=== PATIENT | female | born 1990 | race Caucasian/White ===

== ENCOUNTER 2016-10-11 09:43 | Emergency (ER) | payer MEDICAID ==
[~2016-10-11] VITALS: Ht 154.9 cm; Wt 60.7 kg
[~2016-10-11 09:43] MED LIST: CHLO10CA6 PO; FLUO20CA19 PO; GABA300C10 PO; TRAZ50TA18 PO
[2016-10-11 09:44] VITALS: BP 136/85
[2016-10-11] MEDS ORDERED: KETOROLAC 30 MG/1 ML IM ONE (10:30)
== END 2016-10-11 10:15 | disposition home or self-care (01) ==
LOC: ED 10:00
DX: M79.673 Pain in unspecified foot (principal); Z76.0 Encounter for issue of repeat prescription
CPT/HCPCS: 99281

== ENCOUNTER 2017-01-11 10:03 | Emergency (ER) | payer MEDICAID ==
[~2017-01-11] VITALS: Ht 154.9 cm; Wt 55.0 kg
[2017-01-11] MEDS ORDERED: CITA10TA8 PO (10:23)
[2017-01-11 10:24] VITALS: BP 123/84
[2017-01-11] MEDS ORDERED: TRAZ100T15 PO (10:24)
[2017-01-11] MEDS ORDERED: LORazepam 2 MG/ML, 1ML ONE (10:29)
[2017-01-11] MEDS ORDERED: LORazepam 2 MG/ML, 1ML IVPush ONE (10:30)
== END 2017-01-11 11:28 | disposition left against medical advice (07) ==
LOC: ED 11:26
DX: F10.10 Alcohol abuse, uncomplicated (principal)
CPT/HCPCS: 96374; 99284; J2060

== ENCOUNTER 2017-02-23 11:12 | Emergency (ER) | payer MEDICAID ==
[~2017-02-23] VITALS: Ht 154.9 cm; Wt 59.0 kg
[~2017-02-23 11:12] MED LIST changes: +CITA10TA8 PO; +TRAZ100T15 PO
[2017-02-23 11:15] VITALS: BP 113/74
== END 2017-02-23 12:19 | disposition home or self-care (01) ==
LOC: ED 12:13
DX: K08.89 Other specified disorders of teeth and supporting structures (principal); F17.200 Nicotine dependence, unspecified, uncomplicated
CPT/HCPCS: 99283

== ENCOUNTER 2017-03-24 20:38 | Emergency (ER) | payer MEDICAID ==
[~2017-03-24] VITALS: Ht 154.9 cm; Wt 60.0 kg
[2017-03-24] MEDS ORDERED: LORazepam 1MG TABLET ONE (20:57)
[2017-03-24] MEDS ORDERED: LORazepam 1MG TABLET PO ONE (21:00)
[2017-03-24 21:41] LABS: HEMOGLOBIN 14.8 g/dL (11.7-16.4); WHITE BLOOD COUNT 11.5 x10^3/uL (3.4-10)
[2017-03-24 21:51] LABS: ASPARTATE AMINO TRANSFERASE 32 U/L (15-37); BLOOD UREA NITROGEN 7 mg/dL (7-18)
[2017-03-24 21:59] LABS: ACETAMINOPHEN < 2 mcg/mL (10-30)
[2017-03-24 22:11] VITALS: BP 124/87
[2017-03-25] MEDS ORDERED: FLUO20CA19 PO (20:27)
== END 2017-03-24 22:12 | disposition left against medical advice (07) ==
LOC: ED 21:42
DX: F41.1 Generalized anxiety disorder (principal); F10.120 Alcohol abuse with intoxication, uncomplicated; F17.200 Nicotine dependence, unspecified, uncomplicated; Z88.2 Allergy status to sulfonamides
CPT/HCPCS: 36415; 80053; 80307; 80329; 84703; 85025; 99284; G0480

== ENCOUNTER 2017-03-25 13:27 | Inpatient (IN) | payer MEDICAID ==
[~2017-03-25] VITALS: Ht 154.9 cm; Wt 62.4 kg
[2017-03-25] MEDS ORDERED: LORazepam 2 MG/ML, 1ML IVPush ONE (14:00)
[2017-03-25] MEDS ORDERED: PLEASE ENTER HEIGHT AND WEIGHT MC SCH (14:00)
[2017-03-25] MEDS ORDERED: SODIUM CHLORIDE 0.9% 1,000ML IVBOLUS ONE ×2 (14:00→15:30)
[2017-03-25 14:01] LABS: HEMATOCRIT 43.2 % (34.6-47.8); HEMOGLOBIN 14.7 g/dL (11.7-16.4); WHITE BLOOD COUNT 11.3 x10^3/uL (3.4-10)
[2017-03-25 14:10] LABS: ASPARTATE AMINO TRANSFERASE 24 U/L (15-37); BLOOD UREA NITROGEN 12 mg/dL (7-18)
[2017-03-25] MEDS ORDERED: LORazepam 2 MG/ML, 1ML ONE (14:16)
[2017-03-25] MEDS ORDERED: CHARCOAL/SORBITOL 50 GM/240 ML ONE (14:16)
[2017-03-25 14:21] LABS: ACETAMINOPHEN < 2 mcg/mL (10-30)
[2017-03-25] MEDS ORDERED: CHARCOAL/AQUEOUS 25 GM/120 ML PO ONE (14:30)
[2017-03-25] MEDS ORDERED: LORazepam 1MG TABLET ONE (19:13)
[2017-03-25] MEDS ORDERED: POTASSIUM CHLORIDE 20 MEQ TAB.ER.PRT ONE (19:13)
[2017-03-25] MEDS ORDERED: POTASSIUM CHLORIDE 10% 40 MEQ/30 ML UDC PO ONE (19:30)
[2017-03-25] MEDS ORDERED: LORazepam 1MG TABLET PO ONE (19:30)
[2017-03-25 19:49] LABS: DAU SCREEN DISCLAIMER
[2017-03-25] MEDS ORDERED: FLUO20CA19 PO (20:27)
[2017-03-26] MEDS ORDERED: NS + 40MEQ KCL 1,000 ML IV SCH (01:30)
[2017-03-26] MEDS ORDERED: ACETAMINOPHEN 325 MG TABLET PO PRN (01:30)
[2017-03-26] MEDS ORDERED: ONDANSETRON 2MG/ML, 2ML IVPush PRN (01:30)
[2017-03-26] MEDS ORDERED: LABETALOL 5MG/ML, 20ML IVPush PRN (01:30)
[2017-03-26] MEDS ORDERED: NICOTINE 14MG/24 HR PATCH.TD24 ONE (02:08)
[2017-03-26] MEDS ORDERED: NS + 40MEQ KCL 1,000 ML IV ONE (02:08)
[2017-03-26] MEDS: NICOTINE 14MG/24 HR PATCH.TD24 TD SCH ×2 (02:15→23:03)
[2017-03-26 03:32] VITALS: BP 112/74
[2017-03-26 06:33] LABS: HEMATOCRIT 36.5 % (34.6-47.8); HEMOGLOBIN 12.3 g/dL (11.7-16.4); WHITE BLOOD COUNT 8.3 x10^3/uL (3.4-10)
[2017-03-26 06:46] LABS: ASPARTATE AMINO TRANSFERASE 13 U/L (15-37); BLOOD UREA NITROGEN 13 mg/dL (7-18)
[2017-03-26] MEDS ORDERED: LORazepam 1MG TABLET ONE (08:40)
[2017-03-26] MEDS: FAMOTIDINE 20 MG/2 ML IVPush SCH ×2 (08:42→19:57)
[2017-03-26 08:52] VITALS: BP 115/77
[2017-03-26] MEDS ORDERED: LORazepam 0.5MG TABLET PO ONE (09:00)
[2017-03-26] MEDS ORDERED: POTASSIUM PHOSPHATE 22 MEQ in SODIUM CHLORIDE 0.9% 500 ML IV ONE (09:00)
[2017-03-26] MEDS ORDERED: MAGNESIUM SULFATE PMX 2GM/50ML 50 ML IV ONE (09:00)
[2017-03-26] MEDS ORDERED: LORazepam 0.5MG TABLET PO PRN ×2 (09:00→14:00)
[2017-03-26 13:47] VITALS: BP 136/87
[2017-03-26] MEDS ORDERED: LORazepam 1MG TABLET PO PRN ×6 (14:00)
[2017-03-26] MEDS ORDERED: LORazepam 2 MG/ML, 1ML IV PRN ×8 (14:00)
[2017-03-26] MEDS: LORazepam 2 MG/ML, 1ML IV PRN ×4 (14:18→19:57)
[2017-03-26] MEDS: HEPARIN 5,000 UNITS/ML, 1ML SQ SCH ×2 (15:02→23:03)
[2017-03-26 18:36] VITALS: BP 108/68
[2017-03-26] MEDS: FOLIC ACID 1 MG TABLET PO SCH (19:57)
[2017-03-26] MEDS: THIAMINE 100MG TABLET PO SCH (19:57)
[2017-03-26] MEDS ORDERED: DIPHENHYDRAMINE 50 MG CAPSULE PO ONE (21:30)
[2017-03-26] MEDS ORDERED: DIPHENHYDRAMINE 25 MG CAPSULE ONE (22:26)
[2017-03-27 00:48] VITALS: BP 115/79
[2017-03-27] MEDS: LORazepam 0.5MG TABLET PO PRN ×3 (01:35→11:33)
[2017-03-27 05:26] LABS: HEMATOCRIT 32.9 % (34.6-47.8); HEMOGLOBIN 11.1 g/dL (11.7-16.4); WHITE BLOOD COUNT 7.1 x10^3/uL (3.4-10)
[2017-03-27 05:35] LABS: BLOOD UREA NITROGEN 7 mg/dL (7-18)
[2017-03-27 08:00] VITALS: BP 122/84
[2017-03-27] MEDS: THIAMINE 100MG TABLET PO SCH (09:23)
[2017-03-27] MEDS: FOLIC ACID 1 MG TABLET PO SCH (09:23)
[2017-03-27] MEDS: HEPARIN 5,000 UNITS/ML, 1ML SQ SCH ×3 (09:24→23:00)
[2017-03-27] MEDS: FAMOTIDINE 20 MG/2 ML IVPush SCH (09:24)
[2017-03-27] MEDS: GABAPENTIN 100 MG CAPSULE PO SCH ×4 (13:00→21:33)
[2017-03-27 14:30] VITALS: BP 136/85
[2017-03-27] MEDS: ONDANSETRON ODT 4 MG PO PRN ×2 (15:06→17:37)
[2017-03-27] MEDS: LORazepam 1MG TABLET PO PRN ×2 (17:36→21:33)
[2017-03-27 19:42] VITALS: BP 119/79
[2017-03-28] MEDS: HEPARIN 5,000 UNITS/ML, 1ML SQ SCH ×3 (07:00→20:36)
[2017-03-28 08:00] VITALS: BP 110/74
[2017-03-28] MEDS: GABAPENTIN 100 MG CAPSULE PO SCH ×3 (09:04→20:34)
[2017-03-28] MEDS: FOLIC ACID 1 MG TABLET PO SCH (09:04)
[2017-03-28] MEDS: THIAMINE 100MG TABLET PO SCH (09:04)
[2017-03-28] MEDS: LORazepam 1MG TABLET PO PRN ×4 (09:14→19:35)
[2017-03-28] MEDS: NICOTINE GUM 2 MG BC PRN ×2 (09:42→16:12)
[2017-03-28 19:45] VITALS: BP 105/68
[2017-03-28] MEDS ORDERED: LABETALOL 5MG/ML, 20ML IVPush PRN (20:00)
[2017-03-28] MEDS ORDERED: ACETAMINOPHEN 325 MG TABLET PO PRN (20:00)
[2017-03-28] MEDS ORDERED: ONDANSETRON ODT 4 MG PO PRN (20:00)
[2017-03-28] MEDS ORDERED: ONDANSETRON 2MG/ML, 2ML IVPush PRN (20:00)
[2017-03-28] MEDS ORDERED: DIPHENHYDRAMINE 50 MG CAPSULE PO ONE (23:00)
[2017-03-29] MEDS: HEPARIN 5,000 UNITS/ML, 1ML SQ SCH ×3 (07:00→22:37)
[2017-03-29] MEDS: GABAPENTIN 100 MG CAPSULE PO SCH ×3 (08:04→19:53)
[2017-03-29] MEDS: LORazepam 1MG TABLET PO PRN ×3 (08:05→19:54)
[2017-03-29] MEDS: NICOTINE GUM 2 MG BC PRN ×3 (08:05→19:55)
[2017-03-29] MEDS: FOLIC ACID 1 MG TABLET PO SCH (08:05)
[2017-03-29] MEDS: THIAMINE 100MG TABLET PO SCH (08:16)
[2017-03-29 08:50] VITALS: BP 111/71
[2017-03-29 19:46] VITALS: BP 120/77
[2017-03-29] MEDS ORDERED: DIPHENHYDRAMINE 25 MG CAPSULE ONE (21:15)
[2017-03-29] MEDS ORDERED: DIPHENHYDRAMINE 25 MG CAPSULE PO PRN (21:30)
[2017-03-30] MEDS: HEPARIN 5,000 UNITS/ML, 1ML SQ SCH ×2 (07:00→15:00)
[2017-03-30] MEDS: GABAPENTIN 100 MG CAPSULE PO SCH ×2 (09:15→15:35)
[2017-03-30] MEDS: THIAMINE 100MG TABLET PO SCH (09:15)
[2017-03-30] MEDS: FOLIC ACID 1 MG TABLET PO SCH (09:15)
[2017-03-30] MEDS: NICOTINE GUM 2 MG BC PRN (09:19)
[2017-03-30 10:05] VITALS: BP 117/79
[2017-03-30 10:07] VITALS: BP 117/79
[2017-03-30] MEDS: NICOTINE GUM 4 MG BC PRN ×2 (13:10→15:35)
[2017-03-30] MEDS ORDERED: FLUO40CA9 PO (17:03)
[2017-03-30] MEDS ORDERED: FLUO20CA19 PO (17:03)
[2017-03-30] MEDS ORDERED: GABA300C10 PO (17:03)
== END 2017-03-30 17:37 | disposition home or self-care (01) | DRG 918 ==
LOC: ED 14:41 → EDIP 03-26 01:15 → 4WST 03-26 03:21 → 3E 03-27 17:04
PROVIDERS: ADMIT Internal Medicine; ATTEND Internal Medicine
DX: T43.222A Poisoning by selective serotonin reuptake inhibitors, intentional self-harm, initial encounter (principal); F33.2 Major depressive disorder, recurrent severe without psychotic features; E87.6 Hypokalemia; D64.9 Anemia, unspecified; F10.129 Alcohol abuse with intoxication, unspecified; F12.90 Cannabis use, unspecified, uncomplicated; F17.200 Nicotine dependence, unspecified, uncomplicated; F40.00 Agoraphobia, unspecified; F41.0 Panic disorder [episodic paroxysmal anxiety]; F43.10 Post-traumatic stress disorder, unspecified; F43.21 Adjustment disorder with depressed mood; Z79.899 Other long term (current) drug therapy; Z80.1 Family history of malignant neoplasm of trachea, bronchus and lung; Z88.2 Allergy status to sulfonamides; Y92.89 Other specified places as the place of occurrence of the external cause
CPT/HCPCS: 36415; 80048; 80053; 80307; 80329; 83735; 84100; 84703; 85025; 93005; 96361; 96374; J1644; J2405; Q0162; G0479; G0480; J2060; J3475; J3480; J7030; J7040; Q0163; S0028

== ENCOUNTER 2017-04-23 05:17 | Emergency (ER) | payer MEDICAID ==
[~2017-04-23] VITALS: Ht 167.6 cm; Wt 61.0 kg
[~2017-04-23 05:17] MED LIST changes: +FLUO40CA9 PO
[2017-04-23] MEDS ORDERED: LORazepam 2 MG/ML, 1ML IVPush ONE (05:30)
[2017-04-23] MEDS ORDERED: SODIUM CHLORIDE 0.9% 1,000ML IVBOLUS ONE (05:30)
[2017-04-23] MEDS ORDERED: THIAMINE 100MG TABLET PO ONE (05:30)
[2017-04-23] MEDS ORDERED: THIAMINE 100MG TABLET ONE (05:35)
[2017-04-23] MEDS ORDERED: LORazepam 2 MG/ML, 1ML ONE (05:35)
[2017-04-23 06:35] VITALS: BP 129/79
== END 2017-04-23 06:42 | disposition home or self-care (01) ==
LOC: ED 05:30
DX: F10.280 Alcohol dependence with alcohol-induced anxiety disorder (principal); F17.210 Nicotine dependence, cigarettes, uncomplicated; F32.9 Major depressive disorder, single episode, unspecified; F43.10 Post-traumatic stress disorder, unspecified
CPT/HCPCS: 96361; 96374; 99284; J2060; J7030

== ENCOUNTER 2017-05-03 12:22 | Emergency (ER) | payer MEDICAID ==
[~2017-05-03] VITALS: Ht 154.9 cm; Wt 57.2 kg
[2017-05-03 12:25] VITALS: BP 141/95
[2017-05-03] MEDS ORDERED: LIDOCAINE 1%, 20ML ONE (12:45)
[2017-05-03] MEDS ORDERED: BENZOCAINE 20% SPRAY 0.5ML ONE (12:47)
[2017-05-03] MEDS ORDERED: BENZOCAINE 20% SPRAY 0.5ML TP ONE (13:00)
[2017-05-03] MEDS ORDERED: LIDOCAINE 1%, 20ML SQ ONE (13:00)
== END 2017-05-03 13:14 | disposition home or self-care (01) ==
LOC: ED 12:45
DX: K01.1 Impacted teeth (principal); K08.89 Other specified disorders of teeth and supporting structures
CPT/HCPCS: 64400; 99284

== ENCOUNTER 2017-06-02 19:44 | Emergency (ER) | payer MEDICAID ==
[~2017-06-02] VITALS: Ht 154.9 cm; Wt 65.0 kg
[2017-06-02 20:03] VITALS: BP 136/93
[2017-06-02] MEDS ORDERED: LORazepam 1MG TABLET ONE (20:45)
[2017-06-02] MEDS ORDERED: LORazepam 1MG TABLET PO ONE (21:00)
== END 2017-06-02 21:26 | disposition left against medical advice (07) ==
LOC: ED 19:52
DX: F10.239 Alcohol dependence with withdrawal, unspecified (principal)
CPT/HCPCS: 99283

== ENCOUNTER 2018-04-23 11:48 | Emergency (ER) | payer MEDICAID ==
[~2018-04-23] VITALS: Ht 154.9 cm; Wt 65.1 kg
[~2018-04-23 11:48] MED LIST changes: +TRAZ-136 PO; +TRAZ-137 PO; -TRAZ100T15 PO; -TRAZ50TA18 PO
[2018-04-23] MEDS ORDERED: THIAMINE 100 MG/ML, 2ML ONE (12:52)
[2018-04-23] MEDS ORDERED: LORazepam 2 MG/ML, 1ML ONE (12:52)
[2018-04-23 12:55] LABS: BASOPHILS # (AUTO) 0.02 x10^3/uL (0-0.1); BASOPHILS % (AUTO) 0 % (0-1); EOSINOPHILS # (AUTO) 0.06 x10^3/uL (0-0.4); EOSINOPHILS % (AUTO) 1 % (1-7); LYMPHOCYTES # (AUTO) 1.52 x10^3/uL (1-3.4); LYMPHOCYTES % (AUTO) 24 % (22-44); MD NO; MEAN CORPUSCULAR HEMOGLOBIN 31.9 pg (27.0-34.8); MEAN CORPUSCULAR VOLUME 93.9 fL (80-100); MEAN PLATELET VOLUME 7.4 fL (7.4-10.4); MONOCYTES # (AUTO) 0.42 x10^3/uL (0.2-0.8); MONOCYTES % (AUTO) 7 % (2-9); NEUTROPHILS # (AUTO) 4.45 x10^3/uL (1.8-6.8); NEUTROPHILS % (AUTO) 69 % (42-75); PLATELET COUNT 225 x10^3/uL (130-400); RED BLOOD COUNT 3.98 x10^6/uL (3.82-5.3); RED CELL DISTRIBUTION WIDTH 14.5 % (9.6-15.2)
[2018-04-23] MEDS ORDERED: THIAMINE 100 MG in SODIUM CHLORIDE 0.9% 50 ML IVPB ONE (13:00)
[2018-04-23] MEDS ORDERED: LORazepam 2 MG/ML, 1ML IVPush PRN (13:00)
[2018-04-23 13:09] LABS: ALANINE AMINOTRANSFERASE 57 U/L (12-78); ALBUMIN 3.4 g/dL (3.4-5.0); ANION GAP 9 mmol/L (5-15); CHLORIDE 110 mmol/L (98-107); CREATININE 0.57 mg/dL (0.55-1.02)
[2018-04-23 13:11] LABS: ALKALINE PHOSPHATASE 81 U/L (45-117); BILIRUBIN,TOTAL 0.3 mg/dL (0.2-1.0); TOTAL PROTEIN 6.8 g/dL (6.4-8.2)
[2018-04-23 14:23] VITALS: BP 96/50
== END 2018-04-23 14:26 | disposition home or self-care (01) ==
LOC: ED 13:06
DX: F10.239 Alcohol dependence with withdrawal, unspecified (principal); F10.10 Alcohol abuse, uncomplicated; F17.200 Nicotine dependence, unspecified, uncomplicated; Z88.2 Allergy status to sulfonamides
CPT/HCPCS: 36415; 80053; 83690; 85025; 96365; 96375; 99284; J2060; J3411

== ENCOUNTER 2018-07-09 10:11 | Emergency (ER) | payer MEDICAID ==
[~2018-07-09] VITALS: Ht 162.6 cm; Wt 75.0 kg
[~2018-07-09 10:11] MED LIST changes: -TRAZ-136 PO; +TRAZ50TA66 PO
[2018-07-09] MEDS ORDERED: PROMETHAZINE 25 MG/ML, 1ML ONE (10:29)
[2018-07-09] MEDS ORDERED: PROMETHAZINE 25 MG/ML, 1ML IM ONE (10:30)
[2018-07-09 10:34] LABS: BASOPHILS # (AUTO) 0.02 x10^3/uL (0-0.1); BASOPHILS % (AUTO) 1 % (0-1); EOSINOPHILS # (AUTO) 0.03 x10^3/uL (0-0.4); EOSINOPHILS % (AUTO) 1 % (1-7); LYMPHOCYTES # (AUTO) 1.99 x10^3/uL (1-3.4); LYMPHOCYTES % (AUTO) 50 % (22-44); MD NO; MEAN CORPUSCULAR HEMOGLOBIN 31.4 pg (27.0-34.8); MEAN CORPUSCULAR HGB CONC 33.5 g/dL (32.4-35.8); MEAN CORPUSCULAR VOLUME 93.8 fL (80-100); MEAN PLATELET VOLUME 6.7 fL (7.4-10.4); MONOCYTES # (AUTO) 0.31 x10^3/uL (0.2-0.8); MONOCYTES % (AUTO) 8 % (2-9); NEUTROPHILS # (AUTO) 1.63 x10^3/uL (1.8-6.8); NEUTROPHILS % (AUTO) 41 % (42-75); PLATELET COUNT 216 x10^3/uL (130-400); RED BLOOD COUNT 3.88 x10^6/uL (3.82-5.3)
[2018-07-09 10:45] LABS: ALANINE AMINOTRANSFERASE 33 U/L (12-78); ALBUMIN 3.1 g/dL (3.4-5.0); ANION GAP 10 mmol/L (5-15); CALCIUM 8.2 mg/dL (8.5-10.1); CHLORIDE 112 mmol/L (98-107); CREATININE 0.67 mg/dL (0.55-1.02)
[2018-07-09 10:50] LABS: ALKALINE PHOSPHATASE 71 U/L (45-117); BILIRUBIN,TOTAL 0.3 mg/dL (0.2-1.0); TOTAL PROTEIN 6.1 g/dL (6.4-8.2)
--- NOTE | 2018-07-09 11:01 | NUR ---
Assumed care of pt. Report from Reta ALEXANDER. Pt drowsy but oriented. States continued nasuea. VSS.
[2018-07-09 12:23] VITALS: BP 101/48
== END 2018-07-09 12:28 | disposition home or self-care (01) ==
LOC: ED 10:40
DX: F10.20 Alcohol dependence, uncomplicated (principal); F32.9 Major depressive disorder, single episode, unspecified; F41.1 Generalized anxiety disorder; F43.10 Post-traumatic stress disorder, unspecified
CPT/HCPCS: 36415; 80053; 80307; 83690; 84703; 85025; 96372; 99283; J2550

== ENCOUNTER 2019-01-08 18:16 | Emergency (ER) | payer MEDICAID ==
[~2019-01-08] VITALS: Ht 154.9 cm; Wt 68.0 kg
[2019-01-08 18:18] VITALS: BP 114/75
[2019-01-08] MEDS ORDERED: ONDANSETRON ODT 4 MG ONE (18:26)
[2019-01-08] MEDS ORDERED: ONDANSETRON ODT 4 MG PO ONE (18:30)
== END 2019-01-08 18:37 | disposition home or self-care (01) ==
LOC: ED 18:31
DX: F13.20 Sedative, hypnotic or anxiolytic dependence, uncomplicated (principal); F17.200 Nicotine dependence, unspecified, uncomplicated
CPT/HCPCS: 99283; Q0162

== ENCOUNTER 2019-01-25 23:46 | Emergency (ER) | payer MEDICAID ==
[~2019-01-25] VITALS: Ht 154.9 cm; Wt 69.9 kg
[2019-01-25 23:54] VITALS: BP 122/82
[2019-01-26] MEDS ORDERED: LORazepam 1MG TABLET PO ONE
[2019-01-26 01:05] LABS: MEAN CORPUSCULAR HEMOGLOBIN 32.2 pg (27.0-34.8); MEAN CORPUSCULAR HGB CONC 33.2 g/dL (32.4-35.8); MEAN CORPUSCULAR VOLUME 97.1 fL (80-100); MEAN PLATELET VOLUME 6.9 fL (7.4-10.4); PLATELET COUNT 311 x10^3/uL (130-400); RED CELL DISTRIBUTION WIDTH 18.9 % (9.6-15.2)
[2019-01-26 01:17] LABS: ALANINE AMINOTRANSFERASE 51 U/L (12-78); ALBUMIN 3.4 g/dL (3.4-5.0); ANION GAP 11 mmol/L (5-15); CALCIUM 7.8 mg/dL (8.5-10.1); CHLORIDE 109 mmol/L (98-107); CREATININE 0.78 mg/dL (0.55-1.02)
[2019-01-26 01:22] LABS: ALKALINE PHOSPHATASE 99 U/L (45-117); BILIRUBIN,TOTAL 0.4 mg/dL (0.2-1.0); TOTAL PROTEIN 6.9 g/dL (6.4-8.2)
[2019-01-26 01:24] LABS: MD YES
[2019-01-26 01:28] LABS: ANISOCYTOSIS 1+; BASOS#(MANUAL) 0.05 x10^3/uL (0-0.1); BASOS% (MANUAL) 1 % (0-1); LYMPHS% (MANUAL) 51 % (22-44); MONOS#(MANUAL) 0.33 x10^3/uL (0.3-2.7); MONOS% (MANUAL) 7 % (2-9); SEG#(MANUAL) 1.93 x10^3/uL (1.8-6.8); SEGS% (MANUAL) 41 % (42-75)
[2019-01-26 01:29] LABS: <PLATELET ESTIMATE> ADEQUATE; SMALL PLATELETS 1+
[2019-01-26] MEDS ORDERED: TRAZ50TA66 PO (01:46)
[2019-01-26] MEDS ORDERED: CLON0.5T PO (01:46)
[2019-01-26] MEDS ORDERED: MAALOX/HYOSCYAMINE/LIDOCAINE 45 ML BTL PO ONE (02:00)
[2019-01-26] MEDS ORDERED: ONDANSETRON ODT 4 MG PO ONE (02:00)
[2019-01-26] MEDS ORDERED: DOXYCYCLINE 100MG TABLET ONE (02:09)
[2019-01-26] MEDS ORDERED: ONDANSETRON ODT 4 MG ONE (02:09)
[2019-01-26] MEDS ORDERED: MAALOX/HYOSCYAMINE/LIDOCAINE 45 ML BTL ONE (02:10)
[2019-01-26 02:28] LABS: TROPONIN I < 0.015 ng/mL (0.000-0.045)
[2019-01-26] MEDS ORDERED: DOXYCYCLINE 100MG TABLET PO ONE (02:30)
== END 2019-01-26 02:57 | disposition home or self-care (01) ==
LOC: ED 23:59
DX: K29.20 Alcoholic gastritis without bleeding (principal); F17.200 Nicotine dependence, unspecified, uncomplicated; F43.10 Post-traumatic stress disorder, unspecified; F32.9 Major depressive disorder, single episode, unspecified; F41.1 Generalized anxiety disorder
CPT/HCPCS: 36415; 71046; 80053; 80307; 83690; 84484; 84703; 85025; 93005; 99284; Q0162

== ENCOUNTER 2019-02-13 01:11 | Emergency (ER) | payer MEDICAID ==
[~2019-02-13] VITALS: Ht 154.9 cm; Wt 70.0 kg
[~2019-02-13 01:11] MED LIST changes: +CLON0.5T PO
[2019-02-13 01:27] VITALS: BP 122/74
[2019-02-13] MEDS ORDERED: ONDANSETRON ODT 4 MG ONE (01:29)
[2019-02-13] MEDS ORDERED: ONDANSETRON ODT 4 MG PO ONE (01:30)
--- NOTE | 2019-02-13 01:33 | NUR ---
PT TO RESTROOM TO ATTEMPT URINE COLLECTION
[2019-02-13 02:02] LABS: BASOPHILS # (AUTO) 0.01 x10^3/uL (0-0.1); BASOPHILS % (AUTO) 0 % (0-1); EOSINOPHILS # (AUTO) 0.01 x10^3/uL (0-0.4); EOSINOPHILS % (AUTO) 0 % (1-7); LYMPHOCYTES # (AUTO) 1.58 x10^3/uL (1-3.4); LYMPHOCYTES % (AUTO) 42 % (22-44); MD NO; MEAN CORPUSCULAR HGB CONC 33.4 g/dL (32.4-35.8); MEAN CORPUSCULAR VOLUME 98.9 fL (80-100); MEAN PLATELET VOLUME 6.7 fL (7.4-10.4); MONOCYTES # (AUTO) 0.26 x10^3/uL (0.2-0.8); MONOCYTES % (AUTO) 7 % (2-9); NEUTROPHILS # (AUTO) 1.93 x10^3/uL (1.8-6.8); NEUTROPHILS % (AUTO) 51 % (42-75); PLATELET COUNT 186 x10^3/uL (130-400); RED BLOOD COUNT 4.12 x10^6/uL (3.82-5.3); RED CELL DISTRIBUTION WIDTH 20.8 % (9.6-15.2)
[2019-02-13 02:10] LABS: ALANINE AMINOTRANSFERASE 52 U/L (12-78); ALBUMIN 3.7 g/dL (3.4-5.0); ANION GAP 16 mmol/L (5-15); CALCIUM 8.1 mg/dL (8.5-10.1); CHLORIDE 105 mmol/L (98-107)
[2019-02-13 02:14] LABS: AMPHETAMINE SCREEN, URINE Negative (Negative); BARBITURATE SCREEN, URINE Negative (Negative); BENZODIAZEPINE SCREEN, URINE Positive (Negative); CANNABINOID SCREEN, URINE Positive (Negative); COCAINE SCREEN, URINE Negative (Negative); METHADONE SCREEN, URINE Negative (Negative); OPIATE SCREEN, URINE Negative (Negative)
[2019-02-13 02:15] LABS: ALKALINE PHOSPHATASE 105 U/L (45-117); BILIRUBIN,TOTAL 0.4 mg/dL (0.2-1.0); CREATININE 0.76 mg/dL (0.55-1.02); TOTAL PROTEIN 7.4 g/dL (6.4-8.2)
== END 2019-02-13 02:42 | disposition left against medical advice (07) ==
LOC: ED 02:15
DX: F10.120 Alcohol abuse with intoxication, uncomplicated (principal); Z72.9 Problem related to lifestyle, unspecified; F41.1 Generalized anxiety disorder; F17.200 Nicotine dependence, unspecified, uncomplicated
CPT/HCPCS: 36415; 80053; 80307; 84703; 85025; 99283; Q0162

== ENCOUNTER 2019-02-15 01:02 | Emergency (ER) | payer MEDICAID ==
[~2019-02-15] VITALS: Ht 154.9 cm; Wt 65.3 kg
[2019-02-15 01:20] VITALS: BP 134/87
--- NOTE | 2019-02-15 01:57 | NUR ---
pt to room from lobby
--- NOTE | 2019-02-15 02:08 | NUR ---
Pt c/o ETOH withdrawl, states last drink 02/14 at approx 0600. Pt is alert, restless, c/o anxiety, placed on monitor, ST, all other vitals stable, speech is clear, boyfriend at bedside.
--- NOTE | 2019-02-15 03:04 | NUR ---
AMB TO THE BR. UA CC COLLECTED. AMB BACK TO THE ROOM.
== END 2019-02-15 03:25 | disposition home or self-care (01) ==
LOC: ED 03:18
DX: F41.1 Generalized anxiety disorder (principal); R06.4 Hyperventilation; R11.0 Nausea; F10.10 Alcohol abuse, uncomplicated; F32.9 Major depressive disorder, single episode, unspecified; F43.10 Post-traumatic stress disorder, unspecified
CPT/HCPCS: 36415; 80307; 99284

== ENCOUNTER 2020-09-05 16:38 | Emergency (ER) | payer MEDICAID ==
[~2020-09-05] VITALS: Ht 154.9 cm; Wt 80.0 kg
[~2020-09-05 16:38] MED LIST changes: -TRAZ-137 PO; +TRAZ-175 PO
--- NOTE | 2020-09-05 16:47 | NUR ---
PT MARILIN. PER EMS PT HAS BEEN BINGE DRINKING FOR 4-5 DAYS, PT USUALLY DRINKS APPROX 2-3PINTS OF VODKA/DAY. PT'S LAST DRINK WAS A BEER AT 1200 TODAY. PT AMA'ED FROM [facility] 5 DAYS AGO. PT STATES SHE IS IN ALCOHOL WITHDRAWALS. PT RESTING IN RDUFFIELD, SEIZURE PRECAUTIONS IN PLACE, MONITORING IN PLACE, NADN AT THIS TIME, WILL CONTINUE TO MONITOR.
[2020-09-05] MEDS ORDERED: SODIUM CHLORIDE 0.9% 1,000ML IVBOLUS ONE (17:00)
[2020-09-05] MEDS ORDERED: THIAMINE 100 MG in SODIUM CHLORIDE 0.9% 50 ML IVPB ONE (17:00)
[2020-09-05] MEDS ORDERED: ONDANSETRON 2MG/ML, 2ML IVPush ONE (17:00)
[2020-09-05] MEDS ORDERED: ONDANSETRON 2MG/ML, 2ML ONE (17:09)
[2020-09-05] MEDS ORDERED: LORazepam 2 MG/ML, 1ML ONE ×2 (17:10→18:32)
[2020-09-05] MEDS: LORazepam 2 MG/ML, 1ML IVPush PRN ×2 (17:19→18:38)
[2020-09-05 17:35] LABS: BASOPHILS % (AUTO) 1 % (0-1); EOSINOPHILS % (AUTO) 0 % (1-7); LYMPHOCYTES % (AUTO) 43 % (22-44); MEAN CORPUSCULAR HEMOGLOBIN 31.6 pg (27.0-34.8); MEAN CORPUSCULAR HGB CONC 33.4 g/dL (32.4-35.8); MEAN PLATELET VOLUME 7.2 fL (7.4-10.4); MONOCYTES % (AUTO) 5 % (2-9); NEUTROPHILS % (AUTO) 50 % (42-75); PLATELET COUNT 279 x10^3/uL (130-400); RED BLOOD COUNT 4.31 x10^6/uL (3.82-5.3); RED CELL DISTRIBUTION WIDTH 15.2 % (9.6-15.2)
[2020-09-05 17:37] LABS: MD NO
[2020-09-05 17:48] LABS: ALANINE AMINOTRANSFERASE 48 U/L (12-78); ALBUMIN 3.7 g/dL (3.4-5.0); ANION GAP 12 mmol/L (5-15); CALCIUM 8.5 mg/dL (8.5-10.1); CHLORIDE 109 mmol/L (98-107); CREATININE 0.64 mg/dL (0.55-1.02)
[2020-09-05 17:53] LABS: ALKALINE PHOSPHATASE 112 U/L (45-117); BILIRUBIN,TOTAL 0.4 mg/dL (0.2-1.0); TOTAL PROTEIN 6.9 g/dL (6.4-8.2)
--- NOTE | 2020-09-05 19:16 | NUR ---
PT AMBULATED STEADILY TO DISCHARGE DESK. PT PROVIDED TAXI VOUCHER TO GET HOME SAFELY.
[2020-09-05 19:17] VITALS: BP 122/71
== END 2020-09-05 19:19 | disposition home or self-care (01) ==
LOC: ED 19:15
DX: F10.139 Alcohol abuse with withdrawal, unspecified (principal); Y90.0 Blood alcohol level of less than 20 mg/100 ml; R45.4 Irritability and anger; Z88.2 Allergy status to sulfonamides
CPT/HCPCS: 36415; 80053; 80320; 83690; 84703; 85025; 96365; 96375; 96376; 99284; J2060; J2405; J3411; J7030; G0480

== ENCOUNTER 2020-10-25 13:00 | Emergency (ER) | payer MEDICAID ==
[~2020-10-25] VITALS: Ht 154.9 cm; Wt 82.3 kg
--- NOTE | 2020-10-25 13:25 | NUR ---
pt in room and in gown. pt placed on cardiac , nibp, and o2 monitoring.
--- NOTE | 2020-10-25 13:40 | NUR ---
ROB KERN NEW PATIENT TECHNICAL ADMINISTRATIVE ASSISTANT AT [facility], EXT. [address]).
--- NOTE | 2020-10-25 13:40 | NUR ---
ASSUMED PT CARE. SHE IS MEDICATED. UPDATED ON POC, SHE IS TEARFUL BUT WANTING HELP.
--- NOTE | 2020-10-25 13:42 | NUR ---
ROB KERN NEW PATIENT INDEPENDENT LIVING SPECIALIST AT [facility] CALLED. [facility] WILL TAKE PATIENT FOR BENZO WITHDRAWL TREATMENT.
[2020-10-25 13:52] VITALS: BP 136/84
== END 2020-10-25 14:23 | disposition home or self-care (01) ==
LOC: ED 13:05
DX: F13.139 Sedative, hypnotic or anxiolytic abuse with withdrawal, unspecified (principal); R42 Dizziness and giddiness; Z88.2 Allergy status to sulfonamides; Z88.8 Allergy status to other drugs, medicaments and biological substances; Z79.899 Other long term (current) drug therapy
CPT/HCPCS: 99283